=== PATIENT | male | born 1970 | race Caucasian/White ===

== ENCOUNTER 2017-03-30 19:13 | Inpatient (IN) | payer OTHER ==
[2017-03-30 19:42] LABS: ADD MAN DIFF? NO
[2017-03-30 19:44] LABS: BASO # 0.1 x10^3/uL (0.0-0.2); BASO % 1 % (0-3); EOS # 0.1 x10^3/uL (0.0-0.7); EOS % 2 % (0-3); HEMATOCRIT 42.3 % (39.0-53.0); LYMPH # 2.7 x10^3/uL (1.0-4.8); LYMPH % 36 % (24-48); MEAN CORPUSCULAR HEMOGLOBIN 31 pg (25-35); MEAN CORPUSCULAR HGB CONC 35 g/dL (31-37); MEAN CORPUSCULAR VOLUME 89 fL (79-100); MONO # 0.4 x10^3/uL (0.0-1.1); MONO % 5 % (0-9); NEUT # 4.2 x10^3uL (1.8-7.7); NEUT % 56 % (31-73); PLATELET COUNT 303 x10^3/uL (140-400); RED BLOOD COUNT 4.78 x10^6/uL (4.30-5.70); RED CELL DISTRIBUTION WIDTH 12.7 % (11.5-14.5); WHITE BLOOD COUNT 7.5 x10^3/uL (4.0-11.0)
[2017-03-30 20:06] LABS: TROPONINI < 0.017 ng/mL (0.000-0.055)
[2017-03-30 20:12] LABS: ALBUMIN 3.9 g/dL (3.4-5.0); ALBUMIN/GLOBULIN RATIO 1.1 (1.0-1.7); ALK PHOS 56 U/L (46-116); ALT (SGPT) 82 U/L (16-63); ANION GAP 9 (6-14); AST (SGOT) 37 U/L (15-37); BLOOD UREA NITROGEN 16 mg/dL (8-26); BUN/CREATININE RATIO 15 (6-20); CALCIUM 8.9 mg/dL (8.5-10.1); CARBON DIOXIDE 28 mmol/L (21-32); CHLORIDE 101 mmol/L (98-107); CREATININE 1.1 mg/dL (0.7-1.3); GFR 72.1; GLUCOSE 159 mg/dL (70-99); SODIUM 138 mmol/L (136-145); TOTAL BILIRUBIN 0.5 mg/dL (0.2-1.0); TOTAL PROTEIN 7.6 g/dL (6.4-8.2)
[2017-03-30] MEDS: ASPIRIN CHEWABLE 81 MG TABLET. PO (20:26)
[2017-03-30] MEDS ORDERED: LACTULOSE 20 GM/30 ML SOLUTION. PO (20:30)
[2017-03-30] MEDS ORDERED: BISACODYL 10 MG SUPP.RECT. PR (20:30)
[2017-03-30] MEDS ORDERED: MORPHINE SULFATE 2 MG/ML DISP.SYRIN. IV ×2 (20:30)
[2017-03-30] MEDS ORDERED: MAG HYDROX/ALUMINUM HYD/SIMETH 30 ML ORAL.SUSP PO (20:30)
[2017-03-30] MEDS ORDERED: ACETAMINOPHEN 325 MG TABLET. PO (20:30)
[2017-03-30] MEDS ORDERED: IBUPROFEN 400 MG TABLET. PO (20:30)
[2017-03-30] MEDS ORDERED: NICOTINE 21MG PATCH. TD (20:30)
[2017-03-30] MEDS ORDERED: CALCIUM CARBONATE 500 MG TAB.CHEW PO (20:30)
[2017-03-30] MEDS ORDERED: ONDANSETRON PF 4 MG/2 ML VIAL. IV ×3 (20:30)
[2017-03-30] MEDS ORDERED: diphenhydrAMINE HCL 25 MG CAPSULE PO (20:30)
[2017-03-30] MEDS ORDERED: oxyCODONE IR 5 MG TABLET PO (20:30)
[2017-03-30] MEDS ORDERED: ZOLPIDEM 5 MG TABLET. PO (20:30)
[2017-03-30] MEDS ORDERED: ACETAMINOPHEN/CODEINE 300/30MG TABLET. PO (20:30)
[2017-03-30] MEDS ORDERED: NITROGLYCERIN SUBLINGUAL 0.4 MG BOTTLE OF 25. SL (20:30)
[2017-03-30] MEDS: NITROGLYCERIN OINT 1 GM PACKET. TP (21:09)
[2017-03-30] MEDS: DOCUSATE SODIUM 100 MG CAPSULE. PO (21:51)
[2017-03-31] MEDS: ACETAMINOPHEN 325 MG TABLET. PO (00:12)
[2017-03-31 06:52] LABS: CHOLESTEROL 254 mg/dL (0-200); HDLC 29 mg/dL (40-60); NON-HDL CHOLESTEROL 225 mg/dL (0-129)
[2017-03-31 06:58] LABS: TROPONINI < 0.017 ng/mL (0.000-0.055)
[2017-03-31 07:01] LABS: CKMB INDEX 0.6 % (0-4); CKMB MASS 0.5 ng/mL (0.0-3.6); CREATINE KINASE 84 U/L (39-308)
[2017-03-31 07:14] LABS: CHOLESTEROL/HDL RATIO 8.8; TRIGLYCERIDES 575 mg/dL (0-150)
[2017-03-31 08:27] LABS: CREATINE KINASE 85 U/L (39-308)
[2017-03-31 08:38] LABS: THYROID STIM HORMONE (TSH) 1.879 uIU/mL (0.358-3.74)
[2017-03-31] MEDS: DOCUSATE SODIUM 100 MG CAPSULE. PO (09:00)
[2017-03-31] MEDS: REGADENOSON 0.4 MG/5 ML DISP.SYRIN. IV (10:22)
[2017-03-31] MEDS: ASPIRIN ENTERIC COATED 81 MG TABLET.DR. PO (12:19)
[2017-03-31] MEDS: FENOFIBRATE 54 MG TABLET. PO (12:19)
[2017-03-31 14:18] LABS: MRSA BY PCR Negative (Negative)
[2017-03-31 20:12] LABS: HEMOGLOBIN A1C 5.6 % (4.8-5.6)
[2017-03-31] MEDS ORDERED: ATORVASTATIN CALCIUM 10 MG TABLET. PO (21:00)
== END 2017-03-31 16:53 | disposition home or self-care (01) | DRG 311 ==
LOC: ER 19:13 → 5 NORTH 20:21
DX: I20.9 Angina pectoris, unspecified (principal); I48.91 Unspecified atrial fibrillation; E66.3 Overweight; E78.5 Hyperlipidemia, unspecified; E78.00 Pure hypercholesterolemia, unspecified; F41.9 Anxiety disorder, unspecified; F32.9 Major depressive disorder, single episode, unspecified; F17.210 Nicotine dependence, cigarettes, uncomplicated; Z82.49 Family history of ischemic heart disease and other diseases of the circulatory system; Z68.34 Body mass index [BMI] 34.0-34.9, adult; Z88.8 Allergy status to other drugs, medicaments and biological substances; Z90.49 Acquired absence of other specified parts of digestive tract
CPT/HCPCS: 36415; 71045; 78452; 80053; 80061; 82550; 82553; 83036; 84443; 84484; 85025; 87641; 93005; 93017; 93306; 96374; 96375; 99285; 99285-25; A9500; J2785